=== PATIENT | female | born 1975 | race Caucasian/White ===

== ENCOUNTER → 2024-05-16 15:15 | Outpatient (REF) | payer OTHER, SELFPAY | LOC: HWWDC 15:15 | PROVIDERS: ATTENDING PHYSICIAN Obstetrics & Gynecology; FAMILY PHYSICIAN Family Medicine | DX: Z12.31 Encounter for screening mammogram for malignant neoplasm of breast (principal) | CPT/HCPCS: 77063; 77067 ==

== ENCOUNTER → 2025-07-25 07:55 | Outpatient (REF) | payer OTHER, SELFPAY | LOC: HWWDC 07:55 | PROVIDERS: ATTENDING PHYSICIAN Obstetrics & Gynecology; FAMILY PHYSICIAN Physician Assistant Medical | DX: Z12.31 Encounter for screening mammogram for malignant neoplasm of breast (principal) | CPT/HCPCS: 77063; 77067 ==

== ENCOUNTER 2025-08-19 23:42 | Observation (INO) | payer OTHER, SELFPAY ==
[2025-08-19] VITALS (11 sets, daily range): BP systolic 117–133; BP diastolic 71–91; BMI 34.5
[2025-08-19 16:22] LABS: Hematocrit 39.5 % (37.0-47.0); Hemoglobin 13.1 g/dL (12.0-16.0); Mean Corp Hgb Conc. 33.2 g/dL (33.0-37.0); Mean Corpuscular Volume 92.9 fL (81.0-99.0); Nucleated Red Blood Cells % 0 %; Platelet Count 308 10^3/uL (130-400); Red Cell Dist. Width 12.9 % (11.5-14.5)
[2025-08-19 16:53] LABS: ALT (SGPT) 13 U/L (0-35); AST (SGOT) 14 U/L (14-36); Albumin 4.4 g/dl (3.5-5.0); Alkaline Phosphatase 67 U/L (38-126); Blood Urea Nitrogen 15 mg/dl (7-17); Calcium 9.3 mg/dl (8.4-10.2); Carbon Dioxide 25 mmol/L (22-30); Chloride 108 mmol/L (98-107); Glucose 90 mg/dl (70-99); Potassium 4.4 mmol/L (3.5-5.1); Sodium 139 mmol/L (135-145); Total Protein 7.1 g/dl (6.3-8.2); eGFR > 60.00
[2025-08-19] MEDS: ZOFRAN 4 MG IV ×2 (17:45→21:23)
[2025-08-19] MEDS: ANTIVERT 25 MG PO (17:48)
[2025-08-19] MEDS: NSS 1000 IV ×2 (17:48→21:29)
[2025-08-19] MEDS: VALIUM INJECTION 5 MG IV ×2 (18:56→19:58)
--- NOTE | 2025-08-19 19:36 | ED.GENMED ---
History of Present Illness
General
Chief Complaint: Dizziness
Time Seen by Provider: 08/19/25 17:23
Nursing documentation reviewed up to this point in time: agreed with
History of Present Illness
History of Present Illness:
49-year-old female presents to the ER for evaluation of severe dizziness that occurred this afternoon while she was out shopping with her family. She states that she had a brief episode of a sensation of lightheadedness which resolved quickly. She
states that later while they were walking around she became overwhelmed with the sensation of movement. She reports that she feels a sensation even with her eyes closed. She describes it as a distinct spinning sensation. She states that she had a
mild headache this morning for which she took an ibuprofen-she notes no significant character or quality to the headache that she experienced today. She denies any otalgia cough or cold symptoms. She states that she has seasonal allergies and
occasionally use an antihistamine. She denies any change in hearing. She denies any change in vision. She denies any paresthesias or focal weakness to her arms or legs. No prior history of vertigo. She has no prior history of ACS.
Review of Systems
Review of Systems
Allergies reviewed?: Yes
Phy Exam
Physical Exam
Physical Exam:
Patient is awake, alert, appears in no acute distress, head is NCAT, preferring to keep eyes closed during exam, horizontal nystagmus noted in all directions of gaze, PERRL, EOMI, bilateral tympanic membranes appear normal without erythema or
bulging, mucous membranes moist, posterior pharynx is within normal limits without erythema or asymmetry, conjunctiva pink, heart regular rate and rhythm without murmurs or ectopy, lungs are clear to auscultation without wheezes rales or rhonchi, no
JVD, abdomen is soft and nontender on palpation, extremities without edema, GCS is 15, no dysdiadochokinesia, no ataxia, no pronator drift
Course
Orders/Labs/Results
Orders:
Orders
08/19/25 15:59
EKG [Electrocardiogram (*1)] Urgent
Reason for Study: Palpitations
EKG- Treatment ONCE
08/19/25 16:12
Complete Blood Count/With Diff Urgent
Comprehensive Metabolic Panel Urgent
08/19/25 17:30
0.9% Sodium Chloride 1000 ml [Nss] 1,000 ml IV BOLUS
Meclizine [Antivert] 25 mg PO NOW STA
Ondansetron Injectable [Zofran] 4 mg IV NOW STA
08/19/25 17:32
Test Result ONCE
08/19/25 18:40
diazePAM [Valium Injection] 5 mg IV NOW STA
08/19/25 19:51
diazePAM [Valium Injection] 5 mg IV NOW STA
08/19/25 19:52
CT Head W/o Iv Contrast Urgent
Comment:
Reason For Exam: vertigo
08/19/25 21:04
, Urine Qualitative Screen [HCG, Urine Qualitative Screen] Urgent
Date Specimen was Collected: 08/19/25
Time Specimen was Collected: 17:33
Urinalysis Urgent
Date Specimen was Collected: 08/19/25
Time Specimen was Collected: 17:33
Urine Microscopic Urgent
Date Specimen was Collected: 08/19/25
Time Specimen was Collected: 17:33
08/19/25 21:19
0.9% Sodium Chloride 1000 ml [Nss] 1,000 ml IV BOLUS
Ondansetron Injectable [Zofran] 4 mg IV NOW STA
Abnormal Lab Results
08/19/25 08/19/25
16:12 21:04
WBC 11.4 H 10^3/uL
(4.8-10.8)
Absolute Neuts (auto) 7.5 H 10^3/uL
(1.4-6.5)
Absolute Monos (auto) 1.1 H 10^3/uL
(0.1-0.6)
Monocytes % 9.6 H %
(1.7-9.3)
Chloride 108 H mmol/L
(98-107)
Urine Occult Blood 2+ A
(Negative)
Urine RBC 3-6 A /HPF
(0-2)
Urine Bacteria Moderate A
(Negative)
Urine Albumin 1+ A
(Neg - Trace)
08/19/25 16:12
08/19/25 16:12
Minimal elevation in white blood count, otherwise labs are unremarkable
Vital Signs
Initial and Last Documented VS:
Initial Vital Signs
Temp Pulse Resp BP Pulse Ox
98.5 F 92 18 133/85 99
08/19/25 15:55 08/19/25 15:55 08/19/25 15:55 08/19/25 15:55 08/19/25 15:55
Last Documented Vital Signs
Temp Pulse Resp BP Pulse Ox
98.5 F 89 18 131/83 99
08/19/25 15:55 08/19/25 22:21 08/19/25 15:55 08/19/25 22:30 08/19/25 22:30
*Pulse Oximetry
SaO2: 95
Oxygen Mode of Delivery: Room air
Patient hypoxic: no
*EKG
Interpreted by ED Provider?: Yes (I independently viewed and interpreted twelve-lead EKG showing normal sinus rhythm, no ectopy, heart rate 82, normal axis, normal intervals, this is a normal tracing, no prior for comparison)
*[employer] Interpretation
Rate: normal (I independently viewed and interpreted rhythm strip showing normal sinus rhythm, no ectopy)
*Critical Care Note
Total Time (30-74mins, 75-104mins- exclusive of procedures): Not Applicable
Update Note
Update Note:
Patient was given Zofran and meclizine but had subsequent emesis. She was then given IV fluids and IV Valium. Awaiting urinalysis. Will reassess
1999: Patient still with severe dizziness and retching despite Valium. Will give additional dose. Will obtain CT head, although patient has no change in her physical exam at current time.
2229: Patient required a third round of medications. On reevaluation, she is now able to open her eyes but has severe dizziness even at rest, unable to get out of bed. I reviewed with patient and present bedside very reassuring workup in
the emergency department including negative CT head. I discussed with her benefit of admission given failure of her symptoms to improve as they do not feel that it would not be safe to discharge home as she is still extremely symptomatic. They
feel comfortable with plan at current. I reviewed full patient presentation with the hospitalist who accepts patient for admission for further care.
ED Attending Note
-
Portions of this chart may have been created with voice recognition software.� Occasional wrong word or��sound alike� substitutions may have occurred due to the inherent limitations of voice recognition software.
Discharge Plan
Departure
Patient Disposition: Admit
Date of Disposition: 08/19/25
Time of Disposition: 22:42
Presentation/result/management discussed w/ accepting MD/DO: Hospitalist
Discharge Problem:
intractable vertigo
Prescriptions:
No Action
Vitamins
budesonide [Rhinocort] 7 GM aerosol
7 gm NS
Tums
Referrals:
Manuel Chopra MD [Family Provider, Family Practice]
Interventions
Interventions:
*Risk Screen - Suicide Last Done: 08/19/25 15:55
*General Assessment Last Done: 08/19/25 15:55
*Neglect/Abuse Screening Last Done: 08/19/25 15:55
*ED- Fall Risk Assessment Last Done: 08/19/25 15:55
*ED COVID-19 Vaccine History Last Done: 08/19/25 15:55
ED- Cardiac Assessment Last Done: 08/19/25 17:59
ED- Neurological Assessment Last Done: 08/19/25 20:07
ED Swallowing Screen Last Done: 08/19/25 17:30
Discharge Date and Time
Print Language: [place]
[2025-08-19 21:15] LABS: Urine Character Clear (Clear)
[2025-08-19 21:19] LABS: HCG, Urine Qualitative Screen Negative
[2025-08-19 21:23] LABS: Urine Squamous Cell 26-30 /LPF (Few); Urine White Cell 0-2 /HPF (0-5)
--- NOTE | 2025-08-19 23:11 | HPS.HSE ---
Family Physician
-
Family Physician: Manuel Chopra
Chief Complaint
-
vertigo
History of Present Illness
49-year-old female past medical history of seasonal allergies, presenting with severe dizziness that occurred this afternoon while she was out shopping with her family. She had 1 brief episode of sensation of lightheadedness which resolved quickly.
Later while they were walking she developed vertigo that she even felt with her eyes closed. She has mild headache this morning which she took ibuprofen. She denies any upper respiratory symptoms. She denies any hearing loss or ringing in the
ears. Denies any changes in vision. Denies any paresthesias or focal weakness of arms or legs. Denies any prior history of vertigo. She has vomiting. She has sensitivity with light.
No prior history of migraines.
Denies any chest pain or shortness of breath.
Denies smoking. Drinks alcohol socially. Denies drugs.
No family history of neurological conditions.
Medical History
Past Medical History
Past Medical History: Reports Other (seasonal allergies)
Past Surgical History: Reports Other (Left ACL surgery, x 2)
Social History
Tobacco: Non-smoker
Alcohol: None
Drug: None
Family History
Family History: Not pertinent
Allergies / Home Medications
Allergies reflects when Allergies were last updated in [facility].
Home Medications with original date entered in [facility]
Allergy/Medication List:
Allergies
Allergy/AdvReac Type Severity Reaction Status Date / Time
No Known Allergies Allergy Verified 08/19/25 15:58
Home Medications
Vitamins 01/30/10
budesonide 32 mcg/actuation nasal spray,aerosol (Rhinocort) 7 gm NS 01/30/10
Tums 04/09/13
Review of Systems
-
History Source: Patient
A 12 point ROS was completed and negative except as noted: Yes
Constitutional: Reports No Symptoms
EENT: Reports No Symptoms
Respiratory: Reports No Symptoms
Cardiac: Reports No Symptoms
Abdomen/GI: Reports No Symptoms
: Reports No Symptoms
Musculoskeletal: Reports No Symptoms
Skin: Reports No Symptoms
Neurological: Reports See HPI
Endocrine: Reports No Symptoms
Hematologic/Lymphatic: Reports No Symptoms
Psych: Reports No Symptoms
Physical Exam
Vital Signs
Vital Signs
Temp Pulse Resp BP Pulse Ox
98.5 F 89 18 131/83 99
08/19/25 15:55 08/19/25 22:21 08/19/25 15:55 08/19/25 22:30 08/19/25 22:30
Physical Exam
General: Well Developed, Well Nourished and No Apparent Distress
HEENT: NormoCephalic, Moist mucous membranes and Atraumatic
Respiratory: Clear
Cardiac: S1/S2 and Regular Rhythm; No Murmur or Rub
GI: Soft, Non Tender, Non Distended and Normal Bowel Sounds; No Organomegaly
Rectal: Deferred by Provider
Musculoskeletal: No Clubbing, No Cyanosis and No Edema
Skin: No Rash
Neuro: Nonfocal/grossly intact and Other (Significant nystagmus with rightward gaze)
Laboratory Results
-
08/19/25 16:12
08/19/25 16:12
Laboratory Results
Total Bilirubin 0.2 mg/dl (0.2-1.3) 08/19/25 16:12
AST 14 U/L (14-36) 08/19/25 16:12
ALT 13 U/L (0-35) 08/19/25 16:12
Alkaline Phosphatase 67 U/L (38-126) 08/19/25 16:12
Data Reviewed
-
Lab Data: Labs Reviewed by me
Old Records: Reviewed
Impression/Plan
-
IMPRESSION:
PLAN:
# Acute vertigo possibly BPPV versus vestibular neuritis
-Significant nystagmus with rightward gaze
- CT head shows no acute intracranial abnormality
- Urinalysis unremarkable
-IV fluids given
- Given Valium, meclizine, Zofran with some improvement, continue
- Vestibular therapy
- Consider MRI brain if no improvement
History of seasonal allergies
Full code
DVT prophylaxis�SCDs
Regular diet
[2025-08-20 00:07] VITALS: BP 130/84; BMI 33.6
[2025-08-20] MEDS: COMPAZINE 5 MG IV (00:51)
[2025-08-20 03:27] VITALS: BP 124/58
[2025-08-20 07:00] VITALS: BP 110/66
[2025-08-20 08:42] LABS: Hematocrit 36.9 % (37.0-47.0); Hemoglobin 11.9 g/dL (12.0-16.0); Mean Corp Hgb Conc. 32.2 g/dL (33.0-37.0); Mean Corpuscular Volume 94.9 fL (81.0-99.0); Nucleated Red Blood Cells % 0 %; Platelet Count 252 10^3/uL (130-400); Red Cell Dist. Width 13.1 % (11.5-14.5)
[2025-08-20 09:08] VITALS: BP 108/78; PULSE 68; O2SAT 98
[2025-08-20 09:08] LABS: ALT (SGPT) 11 U/L (0-35); AST (SGOT) 14 U/L (14-36); Albumin 3.4 g/dl (3.5-5.0); Alkaline Phosphatase 48 U/L (38-126); Blood Urea Nitrogen 10 mg/dl (7-17); Calcium 8.8 mg/dl (8.4-10.2); Carbon Dioxide 25 mmol/L (22-30); Chloride 110 mmol/L (98-107); Estimated Creatinine Clearance 107 ml/min; Glucose 78 mg/dl (70-99); Potassium 4.4 mmol/L (3.5-5.1); Sodium 138 mmol/L (135-145); Total Protein 5.8 g/dl (6.3-8.2); eGFR > 60.00
--- NOTE | 2025-08-20 09:13 | W.PN.HOSP.TC ---
Today's Communication/Plan
-
see PN
Assessment / Plan
Assessment / Plan
49yo F with no significant medical Hx came with acute onset of vertigo on the day prior. CT head negative for acute findings, patient without focal neurologcal deficit. On bedside assessment has pronounced rapid nistagmus away from R with positive
head thrust, as per vestibular therapy. SYmptoms of vestibular neuritis. Also with mild monocytosis possibly asymptomatic viral infection.
A/P:
#Acute vertigo 2/2 vestibular neuritis
Meclizine PRN
PT/OT evaluated patient - needs minimal assistance, can function at home
Steroids
Since might be induced by viral disease, which is also indirectly indicated by elevated monocytes - check COVID-19, Influenza PCR
#Mild anemia
outaptient PCP to follow
#Atopic d/o
noymptomsat this time
DVT PPX Lovenox
Full code
I have spent at least 54min reviewing the chart, test results, communication with consultants and providing direct patient care
Anticipated Discharge: Within 24 hours
Subjective/Interval History
-
Date of Service: August 20, 2025
Objective Data
-
Labs:
Laboratory Results
08/20/25
07:19
WBC 10.2
Hgb 11.9 L
Hct 36.9 L
Plt Count 252
Sodium 138
Potassium 4.4
Chloride 110 H
Carbon Dioxide 25
BUN 10
Creatinine 0.7
Glucose 78
Calcium 8.8
Total Bilirubin 0.6
AST 14
ALT 11
Alkaline Phosphatase 48
Vital Signs:
Vital Signs
Temp Pulse Resp BP Pulse Ox
98.4 F 68 16 110/66 98
08/20/25 07:00 08/20/25 07:00 08/20/25 07:00 08/20/25 07:00 08/20/25 07:00
I&O
08/19/25 08/20/25 08/21/25
06:59 06:59 06:59
Intake Total 480 / 480
Balance 480 / 480
Physical Exam
-
General: No Apparent Distress
HEENT: Normocephalic and Other (see PN)
Respiratory: Clear to Auscultation
Neuro: Awake, Alert, Oriented, AO x 3, No Motor Deficits, Nonfocal/Grossly Intact and No Sensory Deficits
Psych: Calm
[2025-08-20] MEDS: SOLU-MEDROL PF 125 MG IV (09:29)
[2025-08-20] MEDS: FLUSH (NSS) 2 FLUSH IV (09:30)
[2025-08-20 09:58] LABS: COVID-19 Antigen Negative (Negative)
--- NOTE | 2025-08-20 10:47 | CM ---
CM reviewed chart, patient seen bedside with , initial assessment completed. Patient is a 49 year old female presents to the ER for evaluation of severe dizziness that occurred this afternoon while she was out shopping with her family.
Patient resides with her and two children in a two level home, bedroom/bathroom on first floor, two steps to enter home. Patient is independent with ADLS/IADLS, denies use of DME. Pt denies VN/SNF hx. Patient is employed. PCP confirmed
Nav, Pharmacy [facility], confirms prescription coverage. Patient denies insecurities at home. OBS form verbally reviewed, provided with copy, placed in chart. CM will continue to follow for all discharge planning needs.
Plan; home with family, no needs.
[2025-08-20 11:00] VITALS: BP 120/80
--- NOTE | 2025-08-20 12:30 | W.DCSUMMARY ---
Discharge Summary
Discharge Data
Date of Admission: 08/19/25
Date of Discharge: 08/20/25
-
Pending Results: No
Hospital Course
49yo F with no significant medical Hx came with acute onset of vertigo on the day prior. CT head negative for acute findings, patient without focal neurologcal deficit. On bedside assessment has pronounced rapid nistagmus away from R with positive
head thrust, as per vestibular therapy. SYmptoms of vestibular neuritis. Also with mild monocytosis possibly asymptomatic viral infection. MRI brain without acute findings, stable to be d/c home on tapering steroids
I have spent at least 54min reviewing the chart, test results, communication with consultants and providing direct patient care
Patient was managed for:
#Acute vertigo 2/2 vestibular neuritis
#Mild anemia
#Atopic d/o
Discharge Plan
-
Patient Disposition: Home (Routine Discharge)
Discharge Diagnosis/Procedures: Vestibular nuritis
Diet: Regular
Referrals:
Manuel Chopra MD [Family Provider, Family Practice]
Prescriptions:
New
methylprednisolone [Medrol (Kevin)] 4 mg tablets,dose pack
See Rx Instructions .ROUTE .COMPLEX Qty: 21 0RF
Rx Instructions:
for 6 days
meclizine 25 mg Tablet
25 mg PO Q8HPRN PRN (Reason: vertigo) Qty: 30 0RF
Discharge Orders:
Discharge Patient (As Directed); Ordered 08/20/25
Ordered By: Dilip Chu
Discharge Date and Time
Print Language: PORTUGUESE
[2025-08-20 14:43] VITALS: BP 108/71
== END 2025-08-20 15:01 | disposition home or self-care (01) ==
LOC: 4 EAST ACU 23:42
PROVIDERS: Student in an Organized Health Care Education/Training Program; ADMITTING PHYSICIAN Hospitalist; ATTENDING PHYSICIAN Internal Medicine; EMERGENCY PHYSICIAN Emergency Medicine; FAMILY PHYSICIAN Family Medicine
DX: R42 Dizziness and giddiness (principal); R51.9 Headache, unspecified; J30.2 Other seasonal allergic rhinitis; H55.00 Unspecified nystagmus; R00.2 Palpitations; R11.10 Vomiting, unspecified; D64.9 Anemia, unspecified; D72.821 Monocytosis (symptomatic); H93.3X9 Disorders of unspecified acoustic nerve; Z11.52 Encounter for screening for COVID-19
CPT/HCPCS: 70450; 70553; 80053; 81003; 81015; 81025; 85025; 87502; 87811; 93005; 96361; 96374; 96375; 96376; 97163; 99285; A9575; G0378